=== PATIENT | female | born 1980 | race Caucasian/White ===

== ENCOUNTER 2022-03-31 23:09 | Emergency (ER) | payer OTHER ==
[2022-03-31 23:44] VITALS: BP 133/83; PULSE 76; TEMP 97.8; BMI 29.3
[2022-04-01] MEDS ORDERED: BUPIVACAINE HCL/PF 0.5% (5MG/ML) 10 ML VIAL ONE (01:02)
[2022-04-01] MEDS ORDERED: IBUPROFEN 600 MG TABLET (FP) PO ONE ×2 (01:08→01:23)
[2022-04-01] MEDS ORDERED: AMOXICILLIN 500 MG CAPSULE (FP) PO ONE (01:09)
[2022-04-01] MEDS ORDERED: BUPIVACAINE HCL/PF 0.5% (5 MG/ML) 30 ML VIAL IJ ONE (01:15)
[2022-04-01] MEDS ORDERED: AMOXICILLIN 500 MG CAPSULE (FP) ONE (01:23)
== END 2022-04-01 02:12 | disposition home or self-care (01) ==
LOC: JER 23:09
DX: K08.89 Other specified disorders of teeth and supporting structures (principal)
CPT/HCPCS: 99283-25